=== PATIENT | female | born 1970 | race Hispanic/Latino ===

== ENCOUNTER 2022-12-26 14:45 | Outpatient (CLI) | payer BC ==
[~2022-12-26 14:45] MED LIST: Iopamidol 370 76% 100 ML VIAL ONE
== END 2022-12-26 14:46 | disposition home or self-care (01) ==
LOC: CSHCT 14:45
PROVIDERS: ATTEND Surgery
DX: M54.2 Cervicalgia (principal); R51.9 Headache, unspecified; Z98.890 Other specified postprocedural states; Z98.1 Arthrodesis status
CPT/HCPCS: 70496; 72040; 72141; Q9967

== ENCOUNTER 2023-01-28 09:44 | Outpatient (CLI) | payer BC | END 2023-01-28 09:45 | disposition home or self-care (01) | LOC: CSHRAD 09:44 | PROVIDERS: ATTEND Surgery | DX: R13.10 Dysphagia, unspecified (principal); R63.30 Feeding difficulties, unspecified | CPT/HCPCS: 74230 ==